=== PATIENT | male | born 1985 | race African-American/Black ===

== ENCOUNTER 2017-10-14 09:24 | Emergency (ER) | payer BC, OTHER ==
[2017-10-14 09:37] VITALS: BP 154/102
--- NOTE | 2017-10-14 10:15 | CT ---
CT cervical spine Technique: Multiple axial sections were obtained from above C1 inferiorly to the top of T2. Reconstructed sagittal and coronal images were reviewed. Comparison: No prior cervical spine imaging. Findings: Mastoid sinuses and middle ear cavities appear clear. Posterior skull base is intact. Vertebral body heights and disc spaces are maintained. Slight posterior spurring is noted at C5. Vertebral bodies and posterior arches are intact with no fracture being seen. No bony central or bony neural foraminal stenosis is seen. No abnormal subluxation is seen. Impression: 1. Incidental posterior spur at C5. 2. Nothing acute is appreciated on CT study of the cervical spine. Diagnostic code #2
--- NOTE | 2017-10-14 10:16 | CT ---
Head CT Technique: Multiple axial sections through the brain were obtained. Intravenous contrast was not utilized. Comparison: No prior intracranial imaging. Findings: Ventricles along with basal cisterns and sulci over the convexities are within normal limits for the patient's age. No abnormal parenchymal densities are seen. No evidence of intracranial hemorrhage. No midline shift or mass effect is seen. Bone window settings were reviewed which shows no acute calvarial abnormality. Visualized paranasal sinuses are clear. Impression: 1. No acute intracranial abnormality is identified. Diagnostic code #1
--- NOTE | 2017-10-14 10:36 | EDM.PDOC ---
ED HPI GENERAL MEDICAL PROBLEM - General Chief Complaint: Head Injury Stated Complaint: HEAD INJURY Time Seen by Provider: 10/14/17 09:41 Source of Information: Reports: Patient History Limitations: Reports: No Limitations - History of Present Illness INITIAL COMMENTS - FREE TEXT/NARRATIVE: The patient slipped on the ice this morning about 8:30am. He thinks he may have been knocked out for awhile. He had some blurry vision for awhile after. He has a headache now and neck pain. He has no nausea, vomiting, numbness or weakness. He has no health problems. He is on no blood thinners. Onset: Sudden Duration: Hour(s): (8:30am) Location: Reports: Head, Neck Quality: Reports: Sharp Severity: Moderate Improves with: Reports: None Worsens with: Reports: None Context: Reports: Trauma (Fell on the ice) Associated Symptoms: Reports: Headaches. Denies: Fever/Chills, Nausea/Vomiting , Shortness of Breath Treatments [employer]: Reports: NSAIDS Head Pain Score (Numeric/FACES): 4 - Related Data Allergies Allergy/AdvReac Type Severity Reaction Status Date / Time No Known Allergies Allergy Verified 10/14/17 09:32 Home Meds: Home Meds Hydrochlorothiazide 12/24/15 [History] Past Medical History - Past Health History Medical/Surgical History: Denies Medical/Surgical History Cardiovascular History: Reports: Hypertension Social & Family History - Family History Family Medical History: Noncontributory - Tobacco Use Smoking Status *Q: Unknown Ever Smoked Second Hand Smoke Exposure: No - Recreational Drug Use Recreational Drug Use: No ED ROS GENERAL - Review of Systems Review Of Systems: See Below Constitutional: Reports: No Symptoms HEENT: Reports: No Symptoms Respiratory: Reports: No Symptoms Cardiovascular: Reports: No Symptoms Endocrine: Reports: No Symptoms GI/Abdominal: Reports: No Symptoms : Reports: No Symptoms Musculoskeletal: Reports: Neck Pain Neurological: Reports: Headache ED EXAM, HEAD INJURY - Physical Exam Exam: See Below Exam Limited By: No Limitations General Appearance: Alert, No Apparent Distress Head: Other (Pain upon palpation to the occipital region) Eyes: Bilateral Eye: EOMI, PERRL Ears: Normal External Exam Nose: Normal Inspection Throat/Mouth: Normal Inspection Neck: Normal Alignment, Tenderness (Moderate) Respiratory: No Respiratory Distress, Lungs Clear, Normal Breath Sounds Cardiovascular: Regular Rate, Rhythm, No Edema, No Murmur GI/Abdominal Exam: Soft, Non-Tender, No Organomegaly, No Mass Back Exam: Normal Inspection Extremities: Normal Inspection Course - Vital Signs Last Recorded V/S: Last Vital Signs Temp 97.3 F 10/14/17 09:33 Pulse 79 10/14/17 09:33 Resp 18 10/14/17 09:33 BP 154/102 H 10/14/17 09:33 Pulse Ox 98 10/14/17 09:33 - Re-Assessments/Exams Free Text/Narrative Re-Assessment/Exam: 10/14/17 10:[address] of his head and cervical spine. They both showed nothing acute. I will discharge him home. Departure - Departure Time of Disposition: 10:40 Disposition: Home, Self-Care 01 Condition: Good Clinical Impression: Fall Qualifiers: Encounter type: initial encounter Qualified Code(s): W19.XXXA - Unspecified fall, initial encounter Contusion of scalp Qualifiers: Encounter type: initial encounter Qualified Code(s): S00.03XA - Contusion of scalp, initial encounter Head injury Qualifiers: Encounter type: initial encounter Qualified Code(s): S09.90XA - Unspecified injury of head, initial encounter Cervical strain Qualifiers: Encounter type: initial encounter Qualified Code(s): S16.1XXA - Strain of muscle, fascia and tendon at neck level, initial encounter - Discharge Information Referrals: Jasen Marx MD [Primary Care Provider] - Additional Instructions: Ice the areas that hurt for 15 minutes 3 times per day for 2 days. Take tylenol or motrin for pain. Get some rest today. Please return if you are worse. Follow up with Dr Blount in 1 week if you are not better.
== END 2017-10-14 10:50 | disposition home or self-care (01) ==
LOC: JD.ED 09:24
DX: S09.90XA Unspecified injury of head, initial encounter (principal); S16.1XXA Strain of muscle, fascia and tendon at neck level, initial encounter; S00.03XA Contusion of scalp, initial encounter; I10 Essential (primary) hypertension; W19.XXXA Unspecified fall, initial encounter; W00.9XXA Unspecified fall due to ice and snow, initial encounter
CPT/HCPCS: 70450; 70450-26; 72125; 72125-26; 99283; 99284-25